=== PATIENT | female | born 1980 | race Caucasian/White ===

== ENCOUNTER 2022-01-16 20:56 | Emergency (ER) | payer OTHER ==
[~2022-01-16] VITALS: Ht 160 cm; Wt 61.7 kg
[2022-01-16] MEDS ORDERED: PROTONIX40 MG PO (23:02)
[2022-01-16] MEDS ORDERED: CARAFATE1 GM PO (23:02)
== END 2022-01-16 23:17 | disposition home or self-care (01) ==
LOC: ED 20:56
DX: K29.70 Gastritis, unspecified, without bleeding (principal)
CPT/HCPCS: 36415; 80053; 81001; 83690; 84703; 85025; 96361; 96374; 96375; 99284-25; C9113; J2405; J7030